=== PATIENT | male | born 1965 | race Caucasian/White ===

== ENCOUNTER 2017-03-12 15:33 | Emergency (ER) ==
[2017-03-12 15:49] VITALS: BP 148/90; TEMP 97.6; BMI 28.6
[2017-03-12] MEDS ORDERED: LIDOCAINE 1 % AMP 5 ML (SUTURES) SUBCUT STA (15:58)
--- NOTE | 2017-03-12 16:05 | ED.PDOC ---
General ED Provider: Dr. DIANE LARSON JR Chief Complaint: Hand Laceration Stated Complaint: left wrist base of thumb reciprocating saw. Saw off. Lac approx 3 cm, gapes. Bleeding controlled[End]1 hour ago 97.6 79 20 96% 148/90 2 10 Time Seen by Physician: 16:05 Mode of Arrival: Walk-In Information Source: Patient Exam Limitations: No limitations Primary Care Provider: SOSA CERVANTES Nursing and Triage Documentation Reviewed and Agree: No Review of Systems - Review Of Systems Constitutional: Reports: No symptoms Eyes: Reports: No symptoms Ears, Nose, Mouth, Throat: Reports: No symptoms Respiratory: Reports: No symptoms Cardiac: Reports: No symptoms GI: Reports: No symptoms : Reports: No symptoms Musculoskeletal: Reports: No symptoms Skin: Reports: No symptoms Neurological: Reports: No symptoms, Other (stutters) Endocrine: Reports: No symptoms Hematologic/Lymphatic: Reports: No symptoms All Other Systems: Other Past Medical History - Past Medical History Endocrine: Reports: None Cardiovascular: Reports: Hypertension Respiratory: Reports: None Hematological: Reports: None Gastrointestinal: Reports: None Genitourinary: Reports: None Neuro/Psych: Reports: None Musculoskeletal: Reports: None Cancer: Reports: None - Surgical History General Surgical History: Reports: None - Family History Family History: Reports: None - Social History Smoking Status: Former smoker Hx Substance Use: No Alcohol Screening: Occasionally - Immunizations Tetanus Shot up to Date: No (greater) Physical Exam - Physical Exam Appearance: Well-appearing Pain Distress: Mild Neck: Supple Respiratory: Airway patent Skin: Warm, Dry, Normal color (21mm laceraton) Neurological: Sensation intact, Motor intact, Reflexes intact, Cranial nerves intact, Alert, Oriented Psychiatric: Affect appropriate, Mood appropriate Procedures - Laceration/Wound Repair No standard instances Wound Description: Linear Wound Length (cm): 2.1 Wound Explored: Clean Wound Irrigated: No Wound Prep: Hibiclens Anesthesia: Lidocaine Wound Repaired With: Sutures Suture Size and Type: 4-0 nylon Number of Sutures: 3 Layer Closure?: No Critical Care Note - Critical Care Note Total Time (mins): 0 Course - Course Orders, Labs, Meds: Orders Category Date Time Status Diphth,Pertuss(Acell),Tet Vac [Boostrix] MEDS 03/12/17 16:19 Once 0.5 ml IM .ONCE ONE Lidocaine HCl/Pf [Lidocaine 1 % Amp 5 ml (Sutures)] MEDS 03/12/17 15:58 Discontinued 5 ml SUBCUT ONCE STA Medications Discontinued Medications Generic Name Dose Route Start Last Admin Trade Name Lenore PRN Reason Stop Dose Admin Diphtheria/Pertussis/Tetanus Vacc 0.5 ml 03/12/17 16:19 Boostrix IM 03/12/17 16:20 .ONCE ONE Lidocaine HCl 5 ml 03/12/17 15:58 03/12/17 16:19 Lidocaine 1 % Amp 5 Ml (Sutures) SUBCUT 03/12/17 15:59 5 ml ONCE STA Administration Vital Signs: Temp Pulse Resp BP Pulse Ox 03/12/17 15:34 97.6 F 79 20 148/90 H 96 Departure - Departure Time of Disposition: 16:24 Disposition: HOME SELF-CARE Discharge Problem: Laceration of hand Instructions: Laceration (ED), Care For Your Stitches (ED) Condition: Good Pt referred to PMD for follow-up: Yes Additional Instructions: sutures out 5-7 days clean and dry for three days return if signs or symptoms of infection Allergies/Adverse Reactions: Allergies No Known Allergies Allergy (Verified 03/12/17 15:44) Home Medications: Ambulatory Orders Bisoprolol Fumarate/Hctz [Ziac 5-6.25 Mg] 1 each PO DAILY 07/07/15 Clonazepam [Klonopin] 1 mg PO DAILY PRN 07/07/15 Hydrocodone/Acetaminophen [[place] 5-325 Tablet] 1 each PO BID PRN 07/07/15 Aspirin [Aspirin EC] 81 mg PO DAILYWM 07/14/15
[2017-03-12] MEDS ORDERED: BOOSTRIX IM ONE (16:19)
== END 2017-03-12 16:44 | disposition home or self-care (01) ==
LOC: ED 15:33
DX: S61.412A Laceration without foreign body of left hand, initial encounter (principal); W29.3XXA Contact with powered garden and outdoor hand tools and machinery, initial encounter
CPT/HCPCS: 90471; 99283